=== PATIENT | female | born 1965 | race Caucasian/White ===

== ENCOUNTER 2017-02-27 18:07 | Emergency (ER) | payer OTHER ==
[2017-02-27] MEDS ORDERED: IOHEXOL 350 MG/ML 10 ML VIAL (for RAD DIAG) IVCONTRAST ONE (18:08)
[2017-02-27] MEDS ORDERED: ONDANSETRON HCL 4 MG/2 ML VIAL ONE (18:14)
[2017-02-27] MEDS ORDERED: MORPHINE SULFATE 8 MG/ML INJ ONE (18:14)
[2017-02-27 18:15] VITALS: O2SAT 97
[2017-02-27 18:33] LABS: I-STAT POTASSIUM 3.9 MMOL/L (3.5-4.9)
[2017-02-27 18:35] LABS: AUTOMATED NEUTROPHIL # 7.9 TH/MM3 (1.8-7.7); BASOPHIL % 0.3 % (0.0-2.0); EOSINOPHIL % 0.5 % (0.0-4.0); HEMATOCRIT 40.5 % (35.0-46.0); HEMO FLAGS DIFF FINAL; LYMPH % 20.2 % (9.0-44.0); LYMPHOCYTE # 2.2 TH/MM3 (1.0-4.8); MEAN CELL VOLUME 95.5 FL (80.0-100.0); MEAN CORPUSCULAR HEMOGLOBIN 32.8 PG (27.0-34.0); MEAN CORPUSCULAR HGB CONC 34.3 % (32.0-36.0); MONO % 7.2 % (0.0-8.0); NEUT % 71.8 % (16.0-70.0); PLATELET COUNT 384 TH/MM3 (150-450); RED BLOOD COUNT 4.24 MIL/MM3 (4.00-5.30); RED CELL DISTRIBUTION WIDTH 13.8 % (11.6-17.2)
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
[2017-02-27 18:43] LABS: APTT (PATIENT) 23.3 SEC (24.3-30.1)
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
[2017-02-27 18:56] VITALS: O2SAT 100
[2017-02-27 18:57] VITALS: BP 139/86; PULSE 85; RESP 18; O2SAT 100
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
[2017-02-27] MEDS ORDERED: oxyCODONE/ACETAMINOPHEN 5 MG/325 MG TAB PO ONE (19:15)
[2017-02-27] MEDS ORDERED: ONDANSETRON HCL 4 MG/2 ML VIAL IV PUSH ONE (19:15)
[2017-02-27] MEDS ORDERED: MORPHINE SULFATE 4 MG/ML INJ IV PUSH ONE (19:15)
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
[2017-02-27 19:36] VITALS: BP 151/86; PULSE 78; RESP 18; O2SAT 99
[2017-02-27] MEDS ORDERED: PERC5TAB12 PO (19:48)
== END 2017-02-27 20:07 | disposition home or self-care (01) ==
LOC: NEPI 18:07 → NEPE 20:07
DX: S62.326A Displaced fracture of shaft of fifth metacarpal bone, right hand, initial encounter for closed fracture (principal); S82.142A Displaced bicondylar fracture of left tibia, initial encounter for closed fracture; V49.49XA Driver injured in collision with other motor vehicles in traffic accident, initial encounter
CPT/HCPCS: 29125; 70450; 71010; 71260; 72125; 72170; 73120; 73564; 74177; 82435; 82565; 82947; 84132; 84295; 84520; 85025; 85610; 85730; 86850; 86900; 86901; 96374; 96375; 99285; 99291; J2270; J2405; L1830; Q9967; G0390